=== PATIENT | male | born 1950 | race Caucasian/White ===

== ENCOUNTER 2019-04-17 19:59 | Emergency (ER) | payer MEDICARE, OTHER ==
[~2019-04-17] VITALS: Ht 175.3 cm; Wt 95.5 kg
[~2019-04-17 19:59] MED LIST: HTN MED; NIFE10 PO
[2019-04-17] MEDS ORDERED: TERB250 PO (20:17)
[2019-04-17] MEDS ORDERED: ATOR20TA86 PO (20:17)
[2019-04-17] MEDS ORDERED: GABA-529 PO (20:17)
[2019-04-17] MEDS ORDERED: HYDR25TA PO (20:17)
[2019-04-17] MEDS ORDERED: LISI-662 PO (20:17)
[2019-04-17] MEDS ORDERED: ASPI-1182 PO (20:17)
[2019-04-17] MEDS ORDERED: SODIUM CHLORIDE 0.9% 1,000 ML IV ONE (21:25)
[2019-04-17] MEDS ORDERED: ONDANSETRON HCL 4 MG/2 ML VIAL IVP ONE (21:30)
[2019-04-17] MEDS ORDERED: ACETAMINOPHEN 500 MG TABLET PO ONE (22:00)
[2019-04-17 22:06] LABS: HEMOGLOBIN 15.6 g/dL (13.5-17.5); LYMPHOCYTES # (AUTO) 0.6 K/uL (1.0-4.8)
[2019-04-17 22:15] LABS: ANION GAP 9 mmol/L (8-16); BASOPHILS % (AUTO) 0.1 % (0.0-2.0); CALCIUM, TOTAL 8.5 mg/dL (8.8-10.5); CARBON DIOXIDE 28 mmol/L (22-29); CHLORIDE 100 mmol/L (98-107); CREATININE 1.13 mg/dL (0.60-1.30); EOSINOPHILS % (AUTO) 0.1 % (1.0-6.0); GLOMERULAR FILTR. RATE CALC > 60 mL/min (>60); GLUCOSE,RANDOM 106 mg/dL (70-110); LYMPHOCYTES % (AUTO) 7.7 % (22.0-44.0); MEAN CORPUSCULAR HEMOGLOBIN 29.3 pg (26.0-34.0); MEAN CORPUSCULAR HGB CONC 32.5 G/dL (31.0-37.0); MEAN CORPUSCULAR VOLUME 90 fL (80-100); MONOCYTES # (AUTO) 0.7 K/uL (0.1-1.0); MONOCYTES % (AUTO) 8.9 % (2.0-9.0); NEUTROPHILS # (AUTO) 6.8 K/uL (1.8-7.7); NEUTROPHILS % (AUTO) 83.2 % (40.0-70.0); RED BLOOD CELL COUNT(AUTO) 5.33 MIL/uL (4.50-5.90); RED CELL DISTRIBUTION WIDTH 15.8 % (11.5-14.5); SODIUM SERUM 137 mmol/L (136-145); UREA NITROGEN, BLOOD 29 mg/dL (7-18)
[2019-04-17 22:19] LABS: PROTHROMBIN TIME 10.7 SEC (9.4-11.6)
[2019-04-17 22:21] LABS: ALANINE AMINOTRANSFERASE 33 U/L (12-78); ALBUMIN 4.2 g/dL (3.4-5.0); ALKALINE PHOSPHATASE 71 U/L (46-116); ASPARTATE AMINOTRANSFERASE 30 U/L (15-37); BILIRUBIN,TOTAL 0.6 mg/dL (0.1-1.0); LIPASE 123 U/L (73-393); TOTAL PROTEIN, SERUM 7.5 g/dL (6.4-8.2)
[2019-04-17] MEDS ORDERED: IOVERSOL 350 MG/ML 150 ML VIAL ONE (22:21)
[2019-04-17] MEDS ORDERED: SODIUM CHLORIDE 0.9% 100 ML ONE (22:21)
[2019-04-17 22:36] LABS: APPEARANCE,URINE CLEAR (CLEAR); BILIRUBIN,URINE NEGATIVE (NEGATIVE); GLUCOSE, URINE (UA) NEGATIVE (NEGATIVE); KETONES,URINE NEGATIVE (NEGATIVE); LEUKOCYTE ESTERASE ,URINE NEGATIVE (NEGATIVE); NITRATE,URINE NEGATIVE (NEGATIVE); OCCULT BLOOD,URINE NEGATIVE (NEGATIVE); PH,URINE 5.5 (5.0-8.0); PROTEIN,URINE NEGATIVE (NEGATIVE)
[2019-04-17 22:38] LABS: B-TYPE NATRIURETIC PEPTIDE 14 pg/mL (0-100)
[2019-04-17 22:46] LABS: PLATELET COUNT (AUTO) 132 K/uL (150-450)
[2019-04-17 22:59] LABS: INFLUENZA TYPE A NEGATIVE FOR TYPE A (NEGATIVE); INFLUENZA TYPE B POSITIVE FOR TYPE B (NEGATIVE)
[2019-04-17 23:04] LABS: LACTIC ACID 1.2 mmol/L (0.4-2.0)
[2019-04-17] MEDS ORDERED: OSELTAMIVIR PHOSPHATE 75 MG CAPSULE PO ONE (23:15)
[2019-04-18 01:04] VITALS: BP 119/72
== END 2019-04-18 01:36 | disposition home or self-care (01) ==
LOC: EMS 19:59
DX: J11.1 Influenza due to unidentified influenza virus with other respiratory manifestations (principal); R10.33 Periumbilical pain; R11.2 Nausea with vomiting, unspecified; I10 Essential (primary) hypertension; Z79.899 Other long term (current) drug therapy; Z86.711 Personal history of pulmonary embolism
CPT/HCPCS: 36415; 71046; 74177; 80053; 81003; 83605; 83690; 83880; 84484; 85025; 85610; 87040; 87804; 93005; 96361; 96374; 99285; J2405; J7050; Q9967